=== PATIENT | female | born 1940 | race Caucasian/White ===

== ENCOUNTER 2018-08-05 20:05 | Inpatient (IN) | payer OTHER ==
[~2018-08-05] VITALS: Ht 157.5 cm; Wt 53.1 kg
[2018-08-05 20:16] VITALS: BP 120/57
[2018-08-05] MEDS ORDERED: ZOLOFT25 MG PO (20:25)
[2018-08-05] MEDS ORDERED: VITAMIN B-121000 MC3 PO (20:26)
[2018-08-05] MEDS ORDERED: SERTRALINE HCL50 MG PO (20:27)
[2018-08-05] MEDS ORDERED: SEROQUEL 25 MG25 MG PO (20:27)
[2018-08-05] MEDS ORDERED: FLOMAX0.4 MG PO (20:28)
[2018-08-05] MEDS ORDERED: DAILY MULTIPLE1 EACH PO (20:29)
[2018-08-05] MEDS ORDERED: PROPRANOLOL 1010 MG PO (20:29)
[2018-08-05] MEDS ORDERED: RESTASIS1 EACH OPHTHALMIC (20:30)
[2018-08-05] MEDS ORDERED: [UNRECOGNIZED DRUG - OTHER] OPHTHALMIC (20:31)
[2018-08-05] MEDS ORDERED: VENTOLIN HFA 1818 GM INH (20:31)
[2018-08-05] MEDS ORDERED: TYLENOL EXTRA500 MG PO (20:32)
[2018-08-05] MEDS ORDERED: MELATONIN5 M1 PO (20:33)
[2018-08-05] MEDS ORDERED: ARICEPT10 MG PO (20:33)
[2018-08-05] MEDS ORDERED: MACROBID 100 M100 M2 PO (20:34)
[2018-08-05 21:03] LABS: ABSOLUTE NEUTROPHILS 2.9 thou/uL (1.4-8.2); EOSINOPHILS 4.2 % (0.0-3.0); HEMATOCRIT 35.4 % (37.0-47.0); HEMOGLOBIN 11.8 gm/dL (12.0-15.0); LYMPHOCYTES 32.6 % (24.0-44.0); MCHC 33.3 g/dL (28.0-37.0); MONOCYTES 10.7 % (1.0-8.0); PLATELET COUNT 195 thou/uL (150-400); POLYS 51.5 % (36.0-66.0); RBC 4.36 mil/uL (4.20-5.00); WBC 5.6 thou/uL (4.0-11.0)
[2018-08-05 21:03] LABS: URINE BILIRUBIN NEGATIVE (Negative); URINE BLOOD NEGATIVE (Negative); URINE CLARITY CLEAR; URINE COLOR YELLOW; URINE GLUCOSE-RANDOM* NEGATIVE (Negative); URINE KETONES TRACE (Negative); URINE LEUKOCYTES-REFLEX 1+ (Negative); URINE NITRITE-REFLEX POSITIVE (Negative); URINE PROTEIN (DIPSTICK) NEGATIVE (Negative); URINE SPECIFIC GRAVITY >= 1.030 (1.005-1.035); URINE UROBILINOGEN 0.2 E.U./dl (0.2-1.0)
[2018-08-05 21:11] LABS: AMP/METHAMP Negative (Negative); BARBITURATES Negative (Negative); BENZODIAZEPINES Negative (Negative); CALCIUM OXALATE 0-3 Few /LPF (None Seen); CASTS None Seen /LPF (None Seen); COCAINE Negative (Negative); METHADONE Negative (Negative); OPIATES Negative (Negative); PCP Negative (Negative); SQUAMOUS 0-3 Few /LPF (0-3)
[2018-08-05 21:12] LABS: BACTERIA-REFLEX >30 Many /HPF (None Seen); URINE RBC None Seen /HPF (0-2)
[2018-08-05 21:15] LABS: ANION GAP 8 mmol/L (7-16); BUN 23 mg/dL (7-18); CALCIUM 9.4 mg/dL (8.5-10.1); CHLORIDE 106 mmol/L (98-107); CO2 30 mmol/L (21-32); CREATININE 0.9 mg/dL (0.6-1.0); GLUCOSE 105 mg/dL (74-106); POTASSIUM 3.8 mmol/L (3.5-5.1); SODIUM 144 mmol/L (136-145)
[2018-08-05 21:25] LABS: ALBUMIN 3.4 g/dL (3.4-5.0); SGOT 20 U/L (15-37); SGPT 16 U/L (30-65); TOTAL BILIRUBIN 0.2 mg/dL (<0.1-1.0); TOTAL PROTEIN 6.9 g/dL (6.4-8.2); TROPONIN-I <0.06 ng/mL (<0.06)
[2018-08-05 23:34] VITALS: BP 120/57
[2018-08-05 23:36] VITALS: BP 107/51
[2018-08-06 01:14] VITALS: BP 107/51
--- NOTE | 2018-08-06 01:16 | NUR ---
ADMISSION NOTE: THE PT ARRIVED ON THE UNIT FROM THE ER VIA CART. THE FAMILY WAS WITH THE PT. HER GERMAINE TOVAR [phone], HER DAUGHTER, WOULD LIKE TO SPEAK WITH THE PHYSICIAN IN THE AM. THE PT CAME FROM [facility], SHE HAS BEEN HAVING INCREASED A/V HALLUNICATIONS, SHE HAS BEEN PARANOID. SHE HAS BEEN ON THE DECLINE SINCE 2018. SHE CURRENTLY HAS A UTI, SHE RECEIVED A DOSE OF IV ROCEPHIN IN THE ER, AND THE SALINE LOCK WAS LEFT IN PLACE TO HER RIGHT ARM. THE PT SAW THE NEURLOGIST YESTERDAY, AND SHE WAS SUPPOSE TO BE STARTED ON MEDICATION, ARICEPT AND MELATONIN, WHICH SHE WAS NOT STARTED ON AT THE LONGTERM. DENIES ANXIETY, DEPRESSION, SI AND HI CURRENTLY. SHE IS AN ASSIST X 2 TO THE BS, SHE LEANS TO THE RIGHT WHEN GETTING HER UP. THE DAUGHTER SAID THAT SHE WAS USING HOME HEALTH, THEY WERE USING A WALKER AND THEY WERE GOING TO USE A WHEELCHAIR WELL. IT WAS REPORTED THAT SHE FELL YESTERDAY AND TODAY, PRIOR TO COMING HERE. SHE RECEIVED HER FLU SHOT fall. THE LONGTERM SHE CAME FROM WAS [facility]. 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 STARTED ON 12 MINUTE CHECKS FOR HER SAFETY.
--- NOTE | 2018-08-06 06:38 | NUR ---
THE PT SLEPT 5 HOURS LAST NIGHT.
--- NOTE | 2018-08-06 11:14 | NUR ---
PATIENT EXHIBITED PARANOIA THIS A.M., EVIDENCED BY REFUSING TO TAKE MEDICATION; STATING THAT EVERYONE HERE IS TRING TO HURT HER. PATIENT HAS BEEN AMBVULATING ABOUT IN THE DINING ROOM WITHOUT A PURPOSE.
--- NOTE | 2018-08-06 11:14 | NUR ---
Pt and ASSESSOR spoke this morning for initial introduction during meal time. Pt presented with flat affect. She spoke softly and carefully. At one point, pt asked lens polisher - your name is Angi, right? ASSESSOR reoriented pt to correct name. Pt stated - oh yes, Angi is the name you will get in your next life. She explained that we all pass on eventually and then begin our new lives. Pt carefully observed staff walking in hallways/day room. When DR entered unit, pt became suspicious and told ASSESSOR that she should beware of him as he is a viscious man.
--- NOTE | 2018-08-06 11:34 | NUR ---
Nutrition: pt admit with delusions, hallucinations, UTI to [facility] unit. Notified of low waqar score. Pt with hx of dementia but did report UBW of 115#. Current is 117#. Did not eat much breakfast this am and decreased po recently documented on ED note. Current diet is soft, noted hx of difficulty swallowing however pt denies. On MVI, B12 supplementation. Would not provide specific food preferences to RD, states she likes to eat a healthy diet. If po does not improve, rec offer ensure. Otherwise consider low risk at present.
--- NOTE | 2018-08-06 16:17 | NUR ---
ASSUMED PATIENT CARE AT 0715. UP AT BREAKFAST, ATE 100% OF MEAL. BLOOD PRESSURE LOW ON DINAMAP, MANUAL READINGS: 110/66, 72 HR, STANDING 100/70, 84 HR. TOOK AM MEDICATIONS. ATE 100% OF LUNCH WELL. CALM BEHAVIOR, SATISFIED MOOD. CONTINUE TO MONITOR.
[2018-08-06 16:29] VITALS: BP 122/57
--- NOTE | 2018-08-06 16:29 | NUR ---
PSYCHOSOCIAL ASSESSMENT Diagnosis: Delusions Admit Date: 08/05/18 Psychiatrist: ERASMO Symptoms associated with current admission: Hallucinations Paranoid ideation Violence/aggression Sleep disturbance Presenting problems: Pt fell twice within a 24 hours because she seen someone. Pt felt like her life in danger in she jump up to get away. Precipitating Factors: Non-compliance psychothx Non-compliance medication Comments: Pt has history of UTI, and current. Pt has had tremors. History of High Risk Behavors: Hx violence/aggression Suicide Risk Factors: D A-Signs of alcohol/substance abuse w/ suicide ideation B-Recent suicidal thoughts or attempts C-Recent thoughts or attempts of harming someone else D-Altered mental status due to psychiatric/chem dep etiology E-The behavior exists - add comment PSYCHIATRIC HISTORY Age of onset: 77 Prior hospitalizations: Hospital names and dates, if available: Most Recent Outpatient HX: Additional information: Legal Status: Voluntary Guardian/Conservatorship type: DPOA Contact name: Kelly Macedo Contact phone: [phone] Other: Name: Phone: Other legal issues: (Arrests/convictions Current Status) None P.O. Name and Phone #: FAMILY HISTORY Place of : [facility] Raised in: [facility] # Siblings & order: Pt has 3 sibilings, and 3rd child Describe relationships within family of origin: Pt is close to her sibilings, and she has a sister who she facetime, and her brother is active in her life. Pt is surrounded by her family, and friends. Any psychiatric or substance abuse problems within family of origin: Y Has patient been sexually or physically abused, neglected or been taken advantage of financially? N Has the abuse been reported? N Other pertinent family information: Marital history/significant relationships: Domestic violence: N Children ages & who is caring for them: Pt has 4 adult children. Is child welfare involved? N Drug history: None Alcohol Use: Frequency: Quantity: Have you ever felt you ought to Cut down on drinking? Have people Annoyed you by criticizing your drinking? Have you ever felt bad or Guilty about your drinking? Have you ever had a drink first thing in the morning to steady your nerves/get rid of a hangover(Eye channel opener) CAGE TOTAL 0 If CAGE score is 3 or more, notify provider for withdrawal orders! 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 Occupational/Work: Do you work? N Do you want to work? N How many hours do you work/week? 0 How many jobs have you had in the past 5 years? 0 Do you need assistance finding a job? N Does the patient need assistance in job training? N Source of income: SSI Does patient have a Payee? Y Payee name: Kelly Macedo Approximate monthly income: 1000 Does patient have adequate funds for next 30 days? Y Education background: Bachelor degree Highest grade completed: 12th grade Other Educational/training programs: Functional deficits: Explain functional deficits: Current living situation: Facility (B&C, SNF,ILF) Address/phone where pt. is living: [facility] Does the patient plan to continue there after DC? Yes Patient lives with: Another facility Will family/significant other be involved in treatment? Other community support services utilized: Pt will be going back to the assisted living center Support System Available (family/friend) Name: Kelly Macedo Relationship: Daughter Name: Pallavi Pizarro Phone: Relationship: Daughter Name: Marcy Mccoy Relationship: Daughter Patient strengths: Family support Insight Education Patient's assets: Verbal Positive support system Good self care Patient's weaknesses: Chronic hx mental illness Health problems Poor social skills Additional weaknesses: Patient's perception of current social director/case management needs: Pt stated a SS is someone who helps you when you need assistance. PRELIMINARY DISCHARGE PLAN Discharge plan/Community resource contacts: Pt will discharge back to [facility] Discharge needs: Pt will need to be transported to the Assisted Living Problems anticipated on discharge: Compliance w/ med regimen Comments: (factors affecting DC plan/pt. response/interventions) Pt will be discharge to assisted living facility. Pt is been assessed to see if she has an Major Neurocognitive Disorder.
--- NOTE | 2018-08-06 17:09 | EKG ---
[place] [address] [facility] [place] [address] ELECTROCARDIOGRAM REPORT Name: DANIELA AREVALON Room #: 521B-B ADM IN M.R.#: [id number] ������������������ Admission: 08/05/18 ������������������ Attend Phys: David Lynn DO Discharge: ������������������ Date of : 36 Report #: [id number] ����������������������������������������������������������������� [id number] THIS REPORT FOR: //name// [facility] ED Test Date: 2018-08-05 Test Time: 21:25:49 Pat Name: JOSE AREVALO Department: Room: [facility] Gender: F Infectious Diseases Physician: CARLITO : 1940 Requested By: Beatrice Silva Order Number: [id number] MD: Luis Lee Measurements Intervals [place] Rate: 65 P: 33 SC: 210 QRS: -18 QRSD: 113 T: 40 QT: 421 QTc: 438 Interpretive Statements Sinus rhythm Incomplete right bundle branch block Anteroseptal infarct, age indeterminate No previous ECG available for comparison Electronically Signed On 08-06-2018 17:09:47 CDT by Luis Lee [email or web address] ��������������������������������������������� <ELECTRONICALLY SIGNED> ���������������������������������������� By: Luis Lee MD, [facility] ��������������������������������������������� 08/06/189 24 24 Luis Lee MD, [facility] /EPI
--- NOTE | 2018-08-06 17:14 | NUR ---
PATIENT TOOK NEW ORDER OF HALDOL 1 MG LIQUID, DISSOLVED IN ORANG JUICE. DAUGHTER HAD VISITED WITH PATIENT EARLIER IN THE SHIFT, CLARIFIED WITH PATIENT THAT SHE (PATIENT) MEEDS TO EAT AND TAKE MEDICATIONS SO THAT SHE CAN RETURN TOHER NORMAL ROUTINE. PATIENT HAS BEEN IN A QUIET, WITHDRAWN MOOD WITH NO OUTWARD BEHAVIORS THIS SHIFT. CONTINUE TO MONITOR.
[2018-08-06 17:18] VITALS: BP 122/57
[2018-08-06 20:12] VITALS: BP 107/51
--- NOTE | 2018-08-06 22:20 | NUR ---
ASSUMED CARE OF THE PT AT 1945PM. ALERT ET ORIENTED X 2. MAKES NEEDS KNOWN. WHEN THIS PACKING SHED SUPERVISOR FIRST CAME ON DUTY, THE PT WAS SITTING IN THE DAYROOM WATCHING TV. SHE TOOK HER MEDICATIONS WITHOUT ANY DIFFICULTY. AFTER WE WALKED HER TO BED AND ASSISTED HER TO BED, THE PT REFUSED HER ROCEPHIN SHOT. NOTIFIED THE CRIBBING SETTER POULTRY CULLER, NO NEW ORDERS. REMAINS ON 12 MINUTE CHECKS.
--- NOTE | 2018-08-07 04:17 | NUR ---
THE PT HAS BEEN SLEEPING MOST OF THE NIGHT, TURNED THE PT FREQUENTLY. ALERT TO PERSON ONLY, SHE FORGETS WHERE SHE IS AT. REMAINS ON 12 MINUTE CHECKS FOR HER SAFETY.
--- NOTE | 2018-08-07 06:03 | NUR ---
THE PT SLEPT 3 HOURS LAST NIGHT.
--- NOTE | 2018-08-07 07:40 | NUR ---
CLIENT AWAKE THIS AM. NEEDS ASSISTANCE WITH USING BSC. ONCE STANDING UP, JUST SLOW TO GETTING AROUND. USES WALKER TO AMBULATE. CONCERNED ABOUT NOT WEARING A SHIRT. LUNGS CLEAR AND ON ROOM AIR. COMPLAINED OF LEFT HIP PAIN, NOT GIVING A NUMBER. WEARS BRIEFS FOR STRESS INCON. FLAT AFFECT.
[2018-08-07 07:45] VITALS: BP 101/52
[2018-08-07 11:23] VITALS: BP 101/52
--- NOTE | 2018-08-07 13:59 | NUR ---
NO COMPLAINTS TODAY. GAVE SHIRT FROM LOST AND FOUND AND SHE FELT COMFORTABLE.
[2018-08-07 15:19] VITALS: BP 101/52
--- NOTE | 2018-08-07 18:02 | NUR ---
PT RECIEVED CLOTHES TODAY FROM FAMILY. SON CAME TO VISIT AT 1600. PT HAS BEEN AWAKE TODAY, NOT VERY VERBAL UNLESS TALKIN TOO. NO COMPLAINTS. TAKING MEDS WITHOUT ISSUES, USES WALKER TO AMBULATE.
[2018-08-07 19:33] VITALS: BP 119/62
--- NOTE | 2018-08-07 21:44 | H ---
[facility] [place] [address] HISTORY AND PHYSICAL Name: JOSE AREVALO Room #: 521B-B ADM IN M.R.#: [id number] Admission: 08/05/18 ������������������ Attend Phys: David Lynn DO Discharge: ������������������ Date of : 36 Report #: [id number] THIS REPORT FOR: //name// CC: David Lynn LITA WOODS DATE OF SERVICE: 08/06/2018 INPATIENT PSYCHIATRIC EVALUATION DATE OF EVALUATION: 08/06/2018. ATTENDING PHYSICIAN: David Lynn DO ASSOCIATE PROFESSOR OF BIOSTATISTICS: Dr. Davis. REASON FOR ADMISSION: The patient came through the Emergency Room. I have suboptimal information on the patient and she is cognitively impaired, so she is a full code at this time. HISTORY OF PRESENT ILLNESS: She was sent from a senior living, specifically independent living, I am actually unclear which senior living as I do not even have that on the paperwork. Apparently, there were increased auditory and visual hallucinations since June. In the ED they got, she has had increasing insomnia, decreased by mouth intake. The patient is struggling with recurrent urinary tract infections over the past several months, recently treated with Macrobid, otherwise not recently been started on any new medications. The patient denied physical complaints, reports she had fallen a few times and is unsure if she hit her head. Additional information obtained in the ER, it is called [facility]. They called the family to report the patient is having increased hallucinations, paranoia, auditory and visual declining since admission to [facility]. She saw a neurologist yesterday and was supposed to start Aricept at bedtime, melatonin at bedtime; however, that was not started. PAST MEDICAL HISTORY AND SURGICAL HISTORY: Includes left total hip arthroplasty in 08/2017, right total knee replacement in 2016 and left knee replacement in 1998. PSYCHIATRIC HISTORY: Includes anxiety, depression, dementia and memory issues. 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 She has essential tremor and has some dysphagia. CURRENT MEDICATIONS: Again, this was suboptimal information. I have a senior living med list that she is getting 1000 mcg of B12 daily, Seroquel 25 mg once daily, sertraline 100 mg by mouth once daily, tamsulosin 0.4 mg once daily[address] [address] HISTORY AND PHYSICAL Name: JOSE AREVALO Room #: 521B-B ADM IN M.R.#: [id number] Admission: 08/05/18 ������������������ Attend Phys: David Lynn DO Discharge: ������������������ Date of : 36 Report #: [id number] ALLERGIES: Showing allergies to TRAMADOL; however, her chart here shows ACETAMINOPHEN AND HYDROCODONE also as allergies. Multivitamin daily, propranolol 40 mg once by mouth twice daily, Restasis 1 drop into both eyes every 12 hours, Refresh Eyes, Ventolin HFA 2 puffs by mouth every 4 hours as needed for wheezing. It looks like donepezil 10 mg was started on 08/04/2018, do not believe currently ordered melatonin 5 mg by mouth once a day at bedtime, Macrobid was started at 100 mg b.i.d. x 7 days on 07/30/2018, Seroquel on 07/28/2018 was 25 mg tabs p.o. b.i.d. for dementia. SOCIAL HISTORY: Denies alcohol, tobacco or recreational drug use. Her physical exam was grossly normal. LABORATORY DATA AND DIAGNOSTIC STUDIES: EKG, incomplete right bundle branch block with anterior septal infarct, rate 65. The QTC is not listed. Abnormalities on laboratory; urine showed trace ketones, positive nitrites, 1+ leukocyte esterase, WBC is 16-25, calcium oxalate, urine bacteria greater than 30. Her BUN was 23, ALT was 16. Hemoglobin 11.8, hematocrit 35.4, eosinophils 4.2%, monocytes 10.7% which was high. UDS was negative. Urine culture is pending. Chest x-ray was done, which was negative. CT scan of the head was done, which showed diffuse cerebral atrophy and volume loss. PHYSICAL EXAMINATION: GENERAL: She is ambulatory today, but cautious gait, appearing disheveled. MENTAL STATUS EXAM: This is a well-developed, ill-appearing female, appearing older than stated age. Attention limited. Concentration limited. Speech, a bit monotone, normal rate. Thought process is linear and limited. Thought content, paranoid ideation, believing I was a distressful person. Some psychomotor agitation. No psychomotor retardation. Denied auditory or visual type hallucinations, though I think she is having external stimuli bother her. Denied suicidal intent or plan. Denied homicidal intent or plan. Some elements of hopelessness and helplessness. Memory known to be impaired, not cooperative with testing. Insight limited. Judgment limited. Fund of knowledge is below average. FORMULATION: A 77-year-old female sent from senior living for possible superimposed delirium on major neurocognitive disorder. DIAGNOSES: Major neurocognitive disorder, unspecified, with behavioral disturbance; urinary tract infection, probable culture pending; several other health concerns including urinary incontinence or rather retention, essential tremor. PLAN: Evaluate, stabilize, obtain collateral. On the senior living facesheet, [facility] [address] [place] [address] HISTORY AND PHYSICAL Name: JOSE AREVALO Room #: 521B-B ADM IN M.R.#: [id number] Admission: 08/05/18 ������������������ Attend Phys: David Lynn DO Discharge: ������������������ Date of : 36 Report #: [id number] there is a Kelly Tomlin, listed as a responsible libertarian at cell [phone], I will need to be in contact with. Regarding her medications, it looks like they needed to be further revised. I did put her on 2 more days of ceftriaxone 1 gram, I am going to make her nebulizer treatments p.r.n., continue propranolol for now and we will start her on Haldol regimen 1 mg oral twice a day for delirium. STRENGTHS: Appears to have supportive family. WEAKNESSES: Advancing age, dementia, recurrent UTIs. Estimated length of stay 7-14 days. ��������������������������������������������� <ELECTRONICALLY SIGNED> ���������������������������������������� By: David Lynn DO ��������������������������������������������� 08/07/18 [id number] 1446 David Lynn DO /nt
--- NOTE | 2018-08-07 22:58 | NUR ---
ASSUMED CARE @ 19:30. GIVEN 2100 MEDS WITHOUT DIFFICULTY. SWALLOWS PILLS ONE AT A TIME WITH WATER, HALDOL 1.5MG IN APPLEJUICE.
--- NOTE | 2018-08-08 05:00 | NUR ---
IN BED ALL NOC, RESPIRATIONS EVEN AND UNLABORED, EYES CLOSED.
[2018-08-08 07:10] VITALS: BP 126/67
[2018-08-08 13:27] VITALS: BP 126/67
--- NOTE | 2018-08-08 17:35 | NUR ---
PATIENT UP THROUGHOUT THE DAY. ATE AT LEAST 50% OF ALL THREE MEALS. COMPLIANT WITH MEDICATIONS. NO BEHAVIORS DISPLAYED, CALM AFFECT, COOPERATIVE MOOD. HAD SHOWER THIS A.M. COMPLIANT WITH MEDICATIONS.
[2018-08-08 19:34] VITALS: BP 133/65
--- NOTE | 2018-08-08 20:03 | NUR ---
ASSUMED CARE @ 19:15, IN DAY ROOM, SITTING WITH PEERS.
--- NOTE | 2018-08-09 03:12 | NUR ---
IN BED EYES CLOSED, RESPIRATIONS EVEN AND UNLABORED.
[2018-08-09 07:10] VITALS: BP 129/61
--- NOTE | 2018-08-09 08:00 | NUR ---
PT UP WITH WALKER THIS AM. SLOW TO GETTING AROUND. DENIES ANY PAIN AT THIS TIME.
[2018-08-09 11:59] VITALS: BP 129/61
--- NOTE | 2018-08-09 13:00 | NUR ---
DIDN'T WANT TO GO TO SOCIAL WORK GROUP. SAT IN DINNING ROOM.
--- NOTE | 2018-08-09 15:05 | NUR ---
PT PARTICIPATING IN GROUP AT THIS TIME.
[2018-08-09 20:15] VITALS: BP 105/54
--- NOTE | 2018-08-10 00:43 | NUR ---
ASSUMED CARE @ 19:30. A&OX3. COULD NOT NAME THE DAY OF THE WEEK, BUT KNEW THAT IT IS JULY. ORIENTED TO PLACE, SELF AND PRESIDENT. SOME CONFUSION AND FRUSTRATION WITH OWN CONFUSION. HRRR, S1S2 NOTED. LUNGS DIMINISHED, ABD NORMOACTIVE SOUNDS. DENIES BM TODAY.
[2018-08-10 02:31] VITALS: BP 105/54
[2018-08-10 11:32] VITALS: BP 128/62
--- NOTE | 2018-08-10 12:53 | NUR ---
PATIENT UP SINCE BREAKFAST; ATE 75-90% OF BOTH MEALS. COMPLIANT WITH MEDICATIONS. NOTE: FELLOW PATIENT, Shannon, HAD INTEREFERED WITH THIS PATIENT'S MED PASS, TELLING HER THAT SHE DID NOT NEED TO TAKE THE MEDICATION IF SHE DID NOT WANT TO. NURSE DISCOURAGED PEER TO NOT INTERFERE, EDUCATED PATIENT ON WHAT SHE IS TAKING, AND THAT SHE NEEDED TO TAKE SAME TO GET WELL. PATIENT COMPLIANT WITH MEDICATIONS. CONTINUE TO MONITOR.
[2018-08-10 19:29] VITALS: BP 126/60
--- NOTE | 2018-08-10 20:12 | NUR ---
ASSUMED CARE OF THE PT AT 194 PM. ALERT ET ORIENTED X 2. MAKES NEEDS KNOWN. SITTING IN THE DAYROOM WHEN THIS LEAD RADIATION THERAPIST CAME ON DUTY. USES A WALKER WHEN SHE GOES AROUND WITH THE ASSISTANCE OF 1. WALKS WITH A SLOW STEADY GAIT. DENIES SI/HI/ANXIETY/DEPRESSION,A/V HALLUNICATIONS. DENIES NIGHTMARES AND RACING THOUGHTS. REMAINS ON 12 MINUTE CHECKS.
--- NOTE | 2018-08-11 03:19 | NUR ---
THE PT HAS BEEN AWAKE ALOT OF THE NOC SHIFT, SITTING AT THE END OF HER BED, ASSISTED HER BACK UP IN THE BED. REMAINS ON 12 MINUTE CHECKS.
--- NOTE | 2018-08-11 06:10 | NUR ---
THE PT SLEPT 6.4 HOURS LAST NIGHT.
[2018-08-11 07:25] VITALS: BP 120/62
[2018-08-11 12:06] VITALS: BP 120/62
[2018-08-11 20:05] VITALS: BP 114/57
--- NOTE | 2018-08-12 03:38 | NUR ---
Pt compliant with medications but needed encouragement to remain on task. Pt abmulating with walker. Remained in living area interacting with peers until bedtime. Slept throughout the night, 6 hours current and remains sleeping. Affect remains blunted, mood calm.
--- NOTE | 2018-08-12 07:40 | NUR ---
Care assumed, patient ambulating in galan with assist of walker, pleasant, calm and cooperative. No distress noted.
--- NOTE | 2018-08-12 11:48 | NUR ---
Pt met with pt on yesterday, august 11, 2018 concerning therapy. Pt stated that she been seen people in the outside, and under bed. Pt stated that she feels safe. Pt stated that she understand that why her daughter brought her here to get help. Pt stated that she has been down with her health for the last several years, and she knows that she needs assistance with her care. Pt stated that she is ready to go back to her facility. Pt stated that her daughter is very supportive. SW stated that she will follow-up with upon discharge.
--- NOTE | 2018-08-12 11:52 | NUR ---
Patient Name: JOSE AREVALO Admission Date: 08/05/18 DISCHARGE PLAN: Pt will be discharge for [facility]. Care Assessment: Pt was assessed by Dr. Lynn, and pt was diagnose with major Neurocognitive Disorder. Level II Assessment: None Transportation: Pt will be transported by the nursing facility. Special Instructions/Notes: DISCHARGE TO FACILITY: Assisted Living Facility Facility: [facility] Fax: Address: [address] [place] [id number] Contact Name: Marie PCP: [facility] facility biomedical specialist Psychiatrist: [facility] facility psychiatrist
[2018-08-12] MEDS ORDERED: FLOMAX0.4 MG PO (12:57)
[2018-08-12] MEDS ORDERED: TYLENOL EXTRA500 MG PO (12:58)
[2018-08-12] MEDS ORDERED: HALOPERIDOL2 MG/1 ML PO (12:59)
--- NOTE | 2018-08-12 14:56 | NUR ---
1403: DC to [facility] via [facility], dc per w/c, scripts, personal walker/belongings and f/u instructions with [place] Personnel upon discharge.
--- NOTE | 2018-08-14 14:44 | D ---
[facility] [place] [address] DISCHARGE SUMMARY Name: DANIELA AREVALON Room #: 521B-B DIS IN M.R.#: [id number] Admission: 08/05/18 ������������������ Attend Phys: David Lynn DO Discharge: 08/12/18 ������������������ Date of : 36 Report #: [id number] THIS REPORT FOR: //name// CC: David Lynn LITA WOODS DATE OF SERVICE: 08/12/2018 CORRESPONDENCE COORDINATOR: At this time of discharge: Norm Ramirez M.D. DISCHARGE DIAGNOSIS: Major neurocognitive disorder likely due to Alzheimer's disease with behavioral disturbance, improved. MEDICAL COMORBIDITIES: 1. Urinary tract infection. 2. Hypertension. 3. UTI, grew Klebsiella pneumoniae. DISCHARGE MEDICATIONS: Tamsulosin 0.4 mg p.o. daily for urinary retention; Tylenol 500 mg p.o. q. 6 p.r.n. pain level 1-5, for pain or fever; Haldol 2 mg p.o. b.i.d. for mood stabilization and psychosis; cyanocobalamin 1000 mcg p.o. daily; multivitamin 1 tab p.o. daily; propranolol 20 mg p.o. b.i.d. that is for anxiety and akathisia; multivitamin for supplementation; cyclosporine ophthalmic drops one drop twice a day, I believe for eye allergies; albuterol sulfate 18 grams aerosol 2 puffs inhaled q. 6 p.r.n. for shortness of air or wheezing. Of note, at this admission, Seroquel was discontinued as well as sertraline and donepezil due to bradycardia. LABORATORY DATA: At this admission on August 05, CBC: H and H on 11.8 and 35.4, white count 5.6 and platelet count 195,000. Sodium 144, potassium 3.9, chloride 106, bicarbonate 30, anion gap 8, BUN 23, creatinine 0.9, estimated GFR 60, and glucose 105. Calcium 9.4, AST 20, ALT 16, and alkaline phosphatase 86. Troponin less than 0.06. Total protein 6.9. Albumin 3.4. TSH 1.890. UDS was negative. Serum alcohol was negative. Urinalysis was positive as indicated. REASON FOR ADMISSION: The patient was brought from [facility]. The patient was having increased hallucinations. The patient moved into [facility] on June 30 with increased anxiety; paranoia; hallucinations, auditory and visual, declining since her admission. The patient saw a neurologist yesterday, was supposed to start Aricept at bedtime and melatonin at bedtime; however, that was not started. HOSPITAL COURSE: The patient was admitted to Geriatric Psychiatry Unit. I elected to go ahead and simplify her regimen. I started her on haloperidol for the suspected component of delirium. She was very guarded the first few days and this cleared up nicely; however, I felt the benefits outweighed the risks [address] [address] DISCHARGE SUMMARY Name: MICKEYJOSE Room #: 521B-B DIS IN M.R.#: [id number] Admission: 08/05/18 ������������������ Attend Phys: David Lynn, DO Discharge: 08/12/18 ������������������ Date of : 36 Report #: [id number] for her continuing an antipsychotic regimen until she is at least a couple of weeks back and doing well at the nursing facility. PHYSICAL EXAMINATION: VITAL SIGNS: On the day of discharge as follows: Temperature 36.2, pulse 72, respirations 19, BP 114/57, and O2 sat 100%. MUSCULOSKELETAL: Ambulates with a walker. Normal station. MENTAL STATUS EXAMINATION: This is a well-developed, fairly nourished, disheveled female appearing her stated age, attention limited, concentration limited. Speech normal rate. Thought process linear. Limited in thought content. To return to nursing facility, no psychomotor agitation, some psychomotor retardation. Denied auditory, visual or tactile hallucination on day of discharge. Denied hopelessness or helplessness. Denied homicidal intent or plan. Insight limited. Judgment limited. Fund of knowledge below average. Prognosis for this patient is guarded given her age and given the fact she has neurocognitive disorder and is prone to delirium. I should add that I met with one of her daughters at this admission, I thought they had a DPOA, they do not. There was a will. The patient, at the time of the admission, did not have the capacity to appoint a DPOA; however, she may have capacity for that portion. However, for general health care and living decisions, I believe the patient lacks capacity. ��������������������������������������������� <ELECTRONICALLY SIGNED> ���������������������������������������� By: David Lynn DO ��������������������������������������������� 08/14/18 [id number] David Lynn DO /nt
== END 2018-08-12 14:03 | DRG 57 ==
LOC: ER 20:05 → EROBS 23:26 → SBH 23:26
PROVIDERS: Student in an Organized Health Care Education/Training Program; ADMIT Psychiatry & Neurology Psychiatry
DX: G30.9 Alzheimer's disease, unspecified (principal); F01.51 Vascular dementia, unspecified severity, with behavioral disturbance; N39.0 Urinary tract infection, site not specified; F41.9 Anxiety disorder, unspecified; F32.9 Major depressive disorder, single episode, unspecified; Z96.642 Presence of left artificial hip joint; Z96.653 Presence of artificial knee joint, bilateral; B96.1 Klebsiella pneumoniae [K. pneumoniae] as the cause of diseases classified elsewhere; G25.0 Essential tremor; I10 Essential (primary) hypertension; F42.8 Other obsessive-compulsive disorder; R33.9 Retention of urine, unspecified; E53.8 Deficiency of other specified B group vitamins; Z88.6 Allergy status to analgesic agent; Z88.8 Allergy status to other drugs, medicaments and biological substances; Z79.899 Other long term (current) drug therapy
CPT/HCPCS: 10880

== ENCOUNTER 2018-08-16 20:10 | Inpatient (IN) | payer OTHER ==
[~2018-08-16] VITALS: Ht 157.5 cm; Wt 53.5 kg
[~2018-08-16 20:10] MED LIST: ARICEPT10 MG PO; DAILY MULTIPLE1 EACH PO; FLOMAX0.4 MG PO; HALOPERIDOL2 MG/1 ML PO; MACROBID 100 M100 M2 PO; MELATONIN5 M1 PO; PROPRANOLOL 1010 MG PO; RESTASIS1 EACH OPHTHALMIC; SEROQUEL 25 MG25 MG PO; SERTRALINE HCL50 MG PO; TYLENOL EXTRA500 MG PO; VENTOLIN HFA 1818 GM INH; VITAMIN B-121000 MC3 PO; ZOLOFT25 MG PO; [UNRECOGNIZED DRUG - OTHER] OPHTHALMIC
[2018-08-16 21:30] LABS: URINE BILIRUBIN NEGATIVE (Negative); URINE BLOOD TRACE (Negative); URINE CLARITY CLEAR; URINE COLOR YELLOW; URINE GLUCOSE-RANDOM* NEGATIVE (Negative); URINE KETONES NEGATIVE (Negative); URINE LEUKOCYTES-REFLEX TRACE (Negative); URINE NITRITE-REFLEX NEGATIVE (Negative); URINE PROTEIN (DIPSTICK) NEGATIVE (Negative); URINE UROBILINOGEN 0.2 E.U./dl (0.2-1.0)
[2018-08-16 23:48] VITALS: BP 138/60
[2018-08-17 00:50] VITALS: BP 136/56
[2018-08-17 02:18] VITALS: BP 118/42
--- NOTE | 2018-08-17 04:14 | NUR ---
PT ARRIVED ON UNIT FROM ER AT APPROX 0100. ADMITTED FROM [facility] WITH DEMENTIA AND BEHAVIORAL DISTURBANCES. ORIENTED TO SELF. DENIES PAIN. DC'D FROM 5S 08/16--PLAN IS FOR READMISSION WHEN BED AVAILABLE. RESTING COMFORTABLY. NO NEEDS VOICED. CALL LIGHT WITHIN REACH. WILL CONTINUE TO PROVIDE FREQUENT OBSERVATION.
[2018-08-17 08:29] VITALS: BP 109/60
[2018-08-17 12:46] LABS: HEMATOCRIT 38.8 % (37.0-47.0); HEMOGLOBIN 12.9 gm/dL (12.0-15.0); MCH 26.8 pg (26.0-34.0); MCHC 33.2 g/dL (28.0-37.0); MCV 80.6 fL (80.0-100.0); RBC 4.82 mil/uL (4.20-5.00); RDW 14.5 % (10.5-14.5); WBC 6.7 thou/uL (4.0-11.0)
[2018-08-17 12:55] LABS: CALCIUM 9.3 mg/dL (8.5-10.1); CREATININE 0.8 mg/dL (0.6-1.0); POTASSIUM 3.7 mmol/L (3.5-5.1)
--- NOTE | 2018-08-17 16:10 | NUR ---
ASSUMED CARE OF PT AT 0700. ASSESSMENT COMPLETED. PT TEARFUL, SUSPICIOUS, AND DEPRESSED. ALERT TO SELF AND PLACE ONLY. DENIES PAIN. NO IV ACCESS, PROVIDER AWARE, NO NEED AT THIS TIME. LABS WNL. ROOM AIR. SKIN INTACT. VOIDING PER BEDPAN DUE TO WEAKNESS. DAUGHTER JONES AT BEDSIDE THIS AFTERNOON. WAITING FOR [facility]YCH. WILL CONTINUE TO MONITOR UNTIL EOS.
[2018-08-17 20:40] VITALS: BP 120/53
[2018-08-18 04:34] VITALS: BP 103/50
--- NOTE | 2018-08-18 05:45 | NUR ---
ASSUMED CARE AT 1900, ASSESSMENT COMPLETED. PT TALKING ABOUT THERE BEING A RAZOR BLADE IN HER BED AND STATING HER FEET WERE BLEEDING, PT HALLUCINATING NEITHER OF THESE WERE TRUE, DID NOT BELIEVE STAFF WHEN REORIENTED. TALKED ABOUT WANTING TO GO HOME, DID NOT KNOW/UNDERSTAND WHY SHE WAS IN THE HOSPITAL. STRUGGLED WITH TAKING PILLS, ALTERNATELY SAYING SHE COULDN'T TAKE WITH LIQUIDS OR WITH APPLESAUCE AND SPITTING PILLS OUT; DID BETTER ONCE SHE HELD THE CUP AND PILLS WERE GIVEN WITH A SPOON THEN A BITE OF APPLESAUCE. PT DOES VERY LITTLE TO MOVE HERSELF, ARMS AND LEGS REMAIN STIFF IN BED, STAFF HAVE TO MOVE HER ARMS OVER TO START HER TURNING TO SIDE/GRABBING THE SIDERAIL TO TURN AND USE THE BEDPAN. PT C/O PAIN IN KNEES, WORSE WITH ANY SORT OF MOVEMENT. PLACED ON BEDPAN TWICE OVERNIGHT, PT DID NOT URINATE; BLADDER SCAN SHOWED ABOUT 25O ML IN BLADDER BUT PT NEVER WOULD GO. NO OTHER CONCERNS, WILL CONTINUE TO MONITOR.
[2018-08-18 08:45] VITALS: BP 134/63
--- NOTE | 2018-08-18 16:00 | NUR ---
PT ADMITTED RELATED TO DEMENTIA--HALLUCINATIONS--BEHAVIOR DISTURBANCE. CM REVIEWED CHART AND SPOKE WITH CARE TEAM. CM MET WITH PT AT BEDSIDE THIS DAY. PT CONFIRMED THAT SHE HAD BEEN AT [facility] CABIN SUPERVISOR. PT COULDN'T CONFIRM IF SHE HAD USED ANY ASSISTIVE DEVICES CABIN SUPERVISOR. CM CONFIRMED THAT DTR IS CONTACT. CM CALLED HER DTR AND LEFT A VM. AWAITING RESPONSE. CARE TEAM INDICATED THAT THE HOPE IS THAT PT WILL BE ABLE TO DISCHARGE BACK TO HER AL FACILITY ONCE MEDICALLY STABLE. CM TO FOLLOW INDICATED WITH DC PLANNING.
[2018-08-18 17:48] VITALS: BP 112/54
[2018-08-18 19:28] VITALS: BP 110/56
--- NOTE | 2018-08-18 19:53 | NUR ---
ASSUMED CARE AT 0700, SHIFT ASSESSMENT DONE, MEDS GIVEN, SOME WHOLE, SOME CRUSHED WITH APPLESAUCE. CONFUSED, A&O*3, INCONTINET. DENIES ANY PAIN. APPETITE POOR, UP WITH ASSIST TIMES 2, GAIT VERY UNSTEADY. STILL HALLUCINATING, WILL CONTINUE TO ASSESS AND ASSIST WITH ADLs NEEDED.
[2018-08-19 03:40] VITALS: BP 100/48
--- NOTE | 2018-08-19 06:37 | NUR ---
patients cares were assumed at shift change, patient was assessed and meds were passed. patient did remember this nurse from the [facility]. patient does better with family present. hourly rounding was done and patient was sleeping. the bed is in a low and locked position,
[2018-08-19 07:45] VITALS: BP 123/56
--- NOTE | 2018-08-19 10:00 | NUR ---
ASSUMED PT CARE AT 0700. ASSESSMENT COMPLETED AND IS CHARTED. VSS. PT IS AWAKE, ALERT/ORIENTED TO PERSON ONLY. PT UP IN CHAIR AT THIS TIME, HALLUCINATING AT TIMES. PT ALSO ATTEMPTING TO PULL CLOTHES OFF. ATTEMPTED TO REDIRECT PT WITH TOWELS TO FOLD. CHAIR ALARM ON FOR SAFETY.
--- NOTE | 2018-08-19 13:19 | NUR ---
PT. RESIDES AT [facility] FAXED CLINICAL UPDATE TO FACILITY AND SPOKE WITH VERO IN ADM. HE RECEIVED UPDATE. DCP TO FOLLOW.
--- NOTE | 2018-08-19 15:12 | NUR ---
CONTACTED BY DR ZIMMERMAN AND DR SIM SAYING THAT PT NEEDS A MEMORY CARE ASSISTED LIVING FACILITY AND THEY HAVE BEEN IN CONTACT WITH [facility] AND THEY ARE NOT ABLE TO ACCEPT PT BACK TO THEIR FACILITY. S/W HERBERT [place].N & SHE CONFIRMED THIS INFO AND TELLS ME HER[facility] ADM WILL HAS A LIST OF MEMORY CARE FACILITIES THAT TAKE THE HCBS WAIVER.
--- NOTE | 2018-08-19 15:25 | NUR ---
CM SPOKE WITH PT'S DTR/DPOA JONES AND SHE HAD SPOKE WITH HER SISTER WHO SPOKE WITH DR. SIM. SHE UNDERSTOOD THAT [facility] WOULD[facility]'T BE ABLE TO ACCEPT PT BACK. FABIAN INDICATED THAT ANDREW HAD INFORMED US OF THAT AND THAT WILL THE RAIL TRANSPORTATION OPERATOR WAS GOING TO PROVIDE A [place]IST OF [place] MEMORY CRE FACIL[place]IES THAT TAKE THE HCBS WAIVER FOR PT'S FAMILY TO REVIEW.
--- NOTE | 2018-08-19 15:46 | NUR ---
PT REMAINS UP IN CHAIR. CONTINUES TO BE CONFUSED BUT IS NOT SO ANXIOUS AND HAS STOPPED PULLING CLOTHES OFF. CHAIR ALARM REMAINS ON. WILL CONTINUE TO MONITOR.
--- NOTE | 2018-08-19 16:25 | NUR ---
[facility] RECORDER CALLED WITH LIST OF 6 FACILITIES THAT HAVE MEMORY CARE AND TAKE [place] MEDICAID. CM CALLED AND NOTIFIED PT'S DTR/DPOA AND SHE ASKED THAT THE LIST BE EMAILED TO HE SPOUSE AT [email or web address]. [facility], [facility], [facility], [facility], [facility], AND [facility]. CM TO FOLLOW INDICATED WITH DC PLANNING.
[2018-08-19 17:36] VITALS: BP 99/55
[2018-08-19 18:45] VITALS: BP 103/47
[2018-08-20 05:30] VITALS: BP 117/58
--- NOTE | 2018-08-20 06:33 | NUR ---
ASSUMED CARE AT 1900, ASSESSMENT COMPLETED. PT ALERT AND PLEASANT WITH GUEST IN ROOM, UP WITH MODERATE ASSIST TO BSC WITH ASSOCIATE [employer]. AFTER VISITOR LEFT, PT LESS ALERT, MORE HESITANT GETTING UP/DOWN OR MOVING IN BED, STRUGGLED WITH TAKING PILLS--KEPT ASKING WHAT IT WAS OR WHY SHE NEEDED TO TAKE IT. PT C/O PAIN IN HEELS, KEEPS LEGS BENT IN BED WITH HIGH PRESSURE TO BOTTOM OF FEET, AND DISLIKES HAVING LEGS PROPPED OR HAVING HOB LAID BACK. THIS AM, ASSISTED PT UP WITH MAX ASSIST TO BSC THEN TO CHAIR. WAITING ON PLACEMENT AT FACILITY. NO OTHER CONCERNS, WILL CONTINUE TO MONITOR.
[2018-08-20 08:40] VITALS: BP 97/46
--- NOTE | 2018-08-20 16:09 | NUR ---
RECEIVED CALL BACK FROM PT'S DTR AND [facility] FOLLOWING TO ASSIST WITH NEW PLACEMENT.
--- NOTE | 2018-08-20 16:22 | NUR ---
FAXED REFERRAL TO [facility] SPOKE WITH JOSHUA IN ADM. SHE RECEIVED REFERRAL AND WILL REVIEW. PT. NEEDS A LTC MEMORY UNIT. FAXED REFERRAL TO [facility] DCP TO F/U IN AM.
[2018-08-20 16:30] VITALS: BP 116/64
--- NOTE | 2018-08-20 16:36 | NUR ---
FAXED REFERRAL TO [facility] SPOKE WITH JOSHUA IN ADM. SHE RECEIVED REFERRAL AND WILL REVIEW. PT'S FAMILY WILL TOUR THE FACILITY THIS EVENING. PT. WILL POSS. BE ABLE TO BE AT A.L.MEMORY UNIT. DCP WILL F/U WITH [facility] IN AM. FAXED REFERRAL TO [facility] SPOKE WITH ALEXA IN ADM. SHE RECEIVED REFERRAL THIS FACILITY IS ONLY A.L. MEMORY CARE FACILITY. SHE WILL REVIEW REFERRAL AND DCP TO F/U IN AM.
[2018-08-20 17:11] VITALS: BP 116/64
--- NOTE | 2018-08-20 17:53 | NUR ---
PATIENT TRANSFERRED FROM [facility]E TO [facility]. REPORTED GIVEN BY NURSE PINK. PATIENT SETTLED TO UNIT. BED ALARM SET.
--- NOTE | 2018-08-21 05:36 | NUR ---
PATIENT ALERT AND ORIENTED TO PERSON AND PLACE ONLY. VERY ANXIOUS. SEES THINGS NOT THERE. IMPULSIVE, TRIES TO GET UP BY SELF. C/O OF SEVERAL DIFFERENT THINGS. A DIFFERENT THING EVERY TIME THIS BAND SPLITTER GOES INTO ROOM. THE ONLY CONSTANT IS THAT THE PATIENT WANTS TO GO HOME. DENIES PAIN. SLEPT VERY LITTLE THIS SHIFT.
[2018-08-21 08:10] VITALS: BP 111/56
--- NOTE | 2018-08-21 13:04 | NUR ---
ASSUMED PATIENT AND CARES AT 0715, PATIENT INITIALLY WAS SLEEP, PATIENT THEN WOKE UP MOVING BLANKETS OFF OF HER, PATIENT HAVING A CONVERSATION DIFFICULT TO TRACK, PATIENT HAVING HALLUCINATIONS, A&OX2 SELF AND PLACE, DENIES PAIN OR DISCOMFORT, NO IV ACCESS, FALL PRECAUTIONS IN PLACE, PERSONAL BELONGINGS AND CALL LIGHT IN REACH, WILL CONTINUE TO MONITOR
--- NOTE | 2018-08-21 13:27 | NUR ---
SW reviewed chart and spoke with nursing and attending physician. [facility] . Pt is progressing towards goals for discharge. SW spoke with pt's dtr, Kelly, via phone to provide update and discuss discharge plan. Pt's dtr stated that they toured [facility] last evening and are going to tour [facility] this evening. Per chart, referral had been sent to [facility]. Pt's dtr states that they are not interested in [facility]. They are wanting to move pt to the [facility]. Pt's dtr states that she spoke with Pearl at [facility], who will review the info once received. F unable to say if they can accept until they review pt's info and do onsite eval. shoe planner to fax referral to [facility]. [facility]. KEHINDE spoke with Rosenda in admissions at [facility] to notify of new referral. KEHINDE informed of pt being in [facility] last month to determine if they need additional ppwk for admission to their SNF or LTC. shoe planner to fax referral to [facility]. Awaiting input from family and facilities. KEHINDE is following to assist as needed with discharge planning.
--- NOTE | 2018-08-21 13:34 | NUR ---
DISCHARGE PLANNING. PATIENT IS MEDICALLY READY FOR DISCHARGE. POST ACUTE CARE RECOMMENDED AT DISCHARGE. FAMILY REQUESTING REFERRAL FAXED TO [facility]. REFERRAL FAXED TO [facility] ADMISSIONS. VERIFIED REFERRAL RECEIVED. CALL PLACED TO [facility] TO NOTIFY OF REFERRAL AND PATIENTS DISCHARGE NEEDS. [facility] STATES [facility] YESTERDAY EVENING AND WILL REVIEW REFERRAL. [facility] TO NOTIFY CM ONCE REVIEW COMPLETE. CALL PLACED TO [facility] ADMISSIONS. VOICE MAIL LEFT FOR JOSHUA TO NOTIFY HER TO DISREGARD REFERRAL FAXED TO [facility]. PER FAMILY, REFERRAL REQUESTED TO BE SENT TO [facility]. FOLLOWING TO ASSIST WITH PATIENTS DISCHARGE NEEDS. UNTI CM/SW AWARE.
[2018-08-21 20:15] VITALS: BP 128/64
--- NOTE | 2018-08-22 05:31 | NUR ---
PATIENT ALERT AND ORIENTED TO PERSON AND SITUATION. IMPULSIVE, HALLUCINATES, CHIEF COMPLIANCE OFFICER WAS CALLED FOR A MED TO HELP CALM PT DOWN. WAS GIVEN MID-SHIFT, WITH NO HELP. C/O PAIN EARLY IN SHIFT, TYLENOL GIVEN WITH NO RELIEF. PATIENT BEGAN TO SAY HER R HIP WAS BROKED AND SHE COULD NOT MOVE HER LEG. WHEN I TRIED TO MOVE IT SHE SCREAMED. CHIEF COMPLIANCE OFFICER WAS CALLED AND AN ORDER FOR AN X-RAY OBTAINED. X-RAY COMPLETED. SLEPT VERY LITTLE THIS SHIFT.
--- NOTE | 2018-08-22 07:57 | NUR ---
ASSUMED PATIENT AND CARES AT 0715, PATIENT IN BED SLEEPING ON LEFT SIDE, NO S/S OF DISTRESS PAIN OR DISCOMFORT, REPORTED A&OX2 SELF AND PLACE, REPORTED PATIENT DID NOT SLEEP WELL, NO IV ACCESS, PENDING RESULTS FOR HIP/PELVIS XRAY, FALL PRECAUTIONS IN PLACE, PERSONAL BELONGINGS AND CALL LIGHT IN REACH, WILL CONTINUE TO MONITOR
[2018-08-22 10:57] VITALS: BP 105/60
--- NOTE | 2018-08-22 13:54 | NUR ---
DISCHARGE NOTE: SW reviewed chart and spoke with nursing and attending physician. Pt is medically stable for discharge today. SW received call from pt's dtr, Kelly, stating they toured [facility], and would like for pt to go to [facility]. [facility] liaison onsite to do evaluation this morning and states they can accept pt. buyer planner sent d/c orders/summary to [facility]. [facility] arranged w/c van transportation for 1530. SW spoke with pt's dtr, Kelly, to provide update and notify of transportation time. Kelly is aware and agreeable to with dischargd plan. Kelly states they will clean out pt's apt at [facility] this weekend. Chart copy requested. Nursing to call report. No additional SW needs identified at this time, but is available to assist should needs arise.
--- NOTE | 2018-08-22 15:46 | NUR ---
PATIENT DISCHARGE TO [facility], NO IV ACCESS TO REMOVE, NO PERSONAL BELONGINGS TO SEND WITH PATIENT, NURSE CALLED REPORT TO [facility], CHART COPY SENT WITH PATIENT, FACILITY VAN TRANSPORTED PATIENT PER WHEELCHAIR
--- NOTE | 2018-08-22 15:53 | NUR ---
I AGREE WITH NURSING ASSESSMENT DONE BY WINSOME/KAYLYNN.
== END 2018-08-22 15:54 | disposition short-term general hospital (02) | DRG 71 ==
LOC: ER 20:10 → 4E 23:37 → EROBS 23:37 → 4E 08-17 02:06 → ENTRNSPT 08-20 16:36 → SICU 08-20 16:54
PROVIDERS: Emergency Medicine; ADMIT Internal Medicine
DX: G93.41 Metabolic encephalopathy (principal); F01.51 Vascular dementia, unspecified severity, with behavioral disturbance; F32.9 Major depressive disorder, single episode, unspecified; Z96.652 Presence of left artificial knee joint; F41.9 Anxiety disorder, unspecified; F22 Delusional disorders; I10 Essential (primary) hypertension; Z96.649 Presence of unspecified artificial hip joint; Z23 Encounter for immunization; Z88.6 Allergy status to analgesic agent; Z88.8 Allergy status to other drugs, medicaments and biological substances; Z90.710 Acquired absence of both cervix and uterus
CPT/HCPCS: 10084; 15002

== ENCOUNTER 2018-09-24 11:22 | Inpatient (IN) | payer OTHER ==
[~2018-09-24] VITALS: Ht 162.6 cm; Wt 49.9 kg
[2018-09-24 12:47] VITALS: BP 143/72
--- NOTE | 2018-09-24 13:03 | NUR ---
77 YO FEMALE DIRECTLY ADMITTED TO 428 BY CART FROM [facility]. A&O TO SELF AND SITUATION. NON VERBAL. LUNG SOUNDS ARE WET WITH SECREATIONS. PT CLEARS THROAT THEN SWALLOWS. IV IN R FA INTACT INFUSING D51/2NS. INCONT OF URINE HAS A BREIF ON. NOTIFIED VIA [employer]. WILL CONT POC.
[2018-09-24 13:23] VITALS: BP 143/72
[2018-09-24] MEDS ORDERED: MUCINEX600 MG PO (13:30)
[2018-09-24] MEDS ORDERED: CLARITIN10 MG PO (13:34)
[2018-09-24] MEDS ORDERED: LEVSIN0.125 MG PO (13:34)
[2018-09-24] MEDS ORDERED: SEROQUEL XR50 MG PO (13:35)
[2018-09-24] MEDS ORDERED: ATIVAN0.5 MG PO (13:35)
[2018-09-24] MEDS ORDERED: TRAZODONE HCL50 MG PO (13:36)
[2018-09-24] MEDS ORDERED: ZOLOFT50 MG PO (13:36)
[2018-09-24 15:23] LABS: HEMATOCRIT 37.3 % (37.0-47.0); HEMOGLOBIN 12.3 gm/dL (12.0-15.0); MCH 26.8 pg (26.0-34.0); MCHC 33.1 g/dL (28.0-37.0); MCV 81.1 fL (80.0-100.0); RBC 4.6 mil/uL (4.20-5.00); RDW 15.5 % (10.5-14.5); WBC 10.7 thou/uL (4.0-11.0)
[2018-09-24] MEDS ORDERED: LORAZEPAM 2MG2 MG/M1 IV PUSH (15:24)
[2018-09-24] MEDS ORDERED: MAALOX ADVANCE355 M1 PO (15:27)
[2018-09-24] MEDS ORDERED: [UNRECOGNIZED DRUG - OTHER] PO (15:28)
[2018-09-24] MEDS ORDERED: OLANZAPINE2.5 MG PO (15:29)
[2018-09-24] MEDS ORDERED: LEVAQUIN 500 M500 M2 IV (15:31)
[2018-09-24] MEDS ORDERED: ONDANSETRON HCL4 M2 PO (15:32)
[2018-09-24] MEDS ORDERED: METRO IV 5500 MG/100 IV (15:32)
[2018-09-24 15:33] LABS: CREATININE 0.6 mg/dL (0.6-1.0); POTASSIUM 3.6 mmol/L (3.5-5.1)
[2018-09-24] MEDS ORDERED: ATROPINE SULFATE2 ML OPHTHALMIC (15:34)
[2018-09-24] MEDS ORDERED: ENOXAPARIN40 MG/0.1 SUBQ (15:34)
[2018-09-24] MEDS ORDERED: HALDOL DEC100 MG/1 M IM (15:36)
[2018-09-24 15:39] LABS: ALBUMIN 2.9 g/dL (3.4-5.0); TOTAL BILIRUBIN 0.6 mg/dL (<0.1-1.0); TOTAL PROTEIN 6.4 g/dL (6.4-8.2)
[2018-09-24 19:35] VITALS: BP 142/69
--- NOTE | 2018-09-25 04:45 | NUR ---
ASSUMED CARE AT 1900, PT HAS BIG FAMILY AND VERY SUPPORTIVE, SPEECH VERY HARD TO UNDERSTAND, VERY RESTLESS AND CRYING WITH EACH TURNING/REPOSITIONING, GIVEN 2 MG IV MORPHINE ORDERED, INCONTINENT OF B/B, PERICARE GIVEN, SCDS TO BLE, ON OXYGN 2 L PER NC, ORAL SUCTION ON STANDBY AND PT DOES NOT LIKE IT, ABLE TO DO ORAL CARE USING SWABS, VSS, STARTED ON ANTIBIOTICS, KEPT NPO, TURNED/REPOSITIONED EVERY 2 HOURS, SCDS TO BLE, ENT WAS CONSULTED, MONITORED.
[2018-09-25 06:28] VITALS: BP 111/74
[2018-09-25 08:21] VITALS: BP 146/92
--- NOTE | 2018-09-25 16:19 | NUR ---
INITIAL ASSESSMENT: Pt evaluated for d/c planning needs. Reviewed chart and spoke with nurse, pt, sister and cousin at bedside. Pt had been living at home with her daughter, went to [facility] memory care unit, then to [facility] behavioral health unit, then to acute care at [facility]. From there, pt went to [facility] memory care unit. Spoke with construction project coordinator at [facility], and she said pt was having hallucinations, and they sent her to [facility]. According to construction project coordinator at [facility], [facility] was planning on sending patient to [facility] for a PEG tube placement. Pt's sister said the plan is for pt to return to [facility] on d/c from hospital. Will remain available to assist as needed.
[2018-09-25 17:42] VITALS: BP 142/62
--- NOTE | 2018-09-25 18:30 | NUR ---
PT ASSESSED AT START OF SHIFT. VERY CONFUSED, RESTLESS, YELLING. DR. BARRERA NOTIFIED AND FABYL RESUMED. PT CALMED AND HAS BEEN VISITING W/ FAMILY AT BEDSIDE. PT VERY CONJESTED THIS AM W/ STRON PRODUCTIVE COUGH. ORAL SUCTIONED W/ THICK WHITE MUCOUS. GOOD ORAL CARE GIVEN. PT RECEIVING RT TX AND NOW OFF O2. TALKED W/ DTR DPOA RE POSSIBLE NEED FOR PEG AND SHE IS GOING TO TALK W/ OTHER FAMILY.
[2018-09-25 22:52] VITALS: BP 130/55
--- NOTE | 2018-09-26 03:56 | NUR ---
ASSUMED CARE AT START OF SHIFT DAUGHTER AT BEDSIDE PT CONFUSED TO TIME SITUATION ORIENTED TO SELF ONLY , DENIES PAIN , YELLING OUT AT TIME , BUT NOTMAKING ANY SENSE ON WHAT AND WHY SHWE IS YELLING OUT. HALDOL GIVEN ORDERED AND HAVE CALM PT DOWN , FEMAL CATHETER PLACED TO KEEP DRY DUE TO HER BE INCONTINENT. RESTED WELL AFTER MEDICATION GIVEN, BED ALARM ON FOR SAFETY, WILL REPORT CHANGES OR ABNORMAL FINDINDGS.
[2018-09-26 04:48] LABS: HEMATOCRIT 33.4 % (37.0-47.0); HEMOGLOBIN 11.2 gm/dL (12.0-15.0); MCH 26.9 pg (26.0-34.0); MCHC 33.5 g/dL (28.0-37.0); MCV 80.4 fL (80.0-100.0); RBC 4.15 mil/uL (4.20-5.00); RDW 14.9 % (10.5-14.5)
[2018-09-26 05:08] LABS: CALCIUM 8.7 mg/dL (8.5-10.1); CREATININE 0.5 mg/dL (0.6-1.0)
[2018-09-26 05:36] VITALS: BP 141/85
[2018-09-26 08:05] VITALS: BP 151/57
--- NOTE | 2018-09-26 08:10 | NUR ---
ASSESMENT COMPLETED. VSS. CONFUSED. VWERY RESTLESS. SCHEDULED MEDS GIVEN ORDERED. INCONTINEHNT. REPOSITIONED Q2. PT RESTING IN BED AT THIS TIME. WILL CONT. TO MONITOR.
--- NOTE | 2018-09-26 11:13 | NUR ---
Pt NPO. Physician recommended tube feeding placement due to aspiration risk secondary to vocal cord paralysis. If tube placed, recommend Jevity 1.5 at goal rate of 45 mL/hr. No water flushes recommended at this time due to IVF running at 80 mL/hr to meet needs. If IVF to be d/c, recommend 175 mL water flushes every 6 hours.
--- NOTE | 2018-09-26 15:26 | NUR ---
Following for d/c planning needs. Family wants to meet with physician. Dr Price said he will be available to meet with family between 10-11 on Saturday. RN to call physician when family arrives. RN notified family.
[2018-09-26 16:33] VITALS: BP 149/67
--- NOTE | 2018-09-26 18:19 | NUR ---
PT CALM THIS AFTERNOON- COOPERATIVE WITH CARES. ORAL CARE PROVIDED. INCONTINENT. PT RESTING IN BED- BED ALARM ON. FAMILY TO MEET WITH DR. HOLLY SALGADO, PLEASE PAGE DR. BARRERA WHEN FAMILY ARRIVES.
[2018-09-26 21:25] VITALS: BP 121/46
[2018-09-26 22:00] VITALS: BP 97/63
[2018-09-27 06:22] VITALS: BP 143/62
--- NOTE | 2018-09-27 07:42 | NUR ---
ASSUMED PT CARE 1899. PT CONFUSED. REASSESSMENT COMPLETE. VSS. IV DRESSING C/D/I, NO SIGNS OF INFILTRATION. ROOM CLOSE TO NURSES STATION AND FRQUENT ROUNDING. REPORT GIVEN TO AM NURSE.
[2018-09-27 09:08] VITALS: BP 150/56
[2018-09-27 17:56] VITALS: BP 125/97
--- NOTE | 2018-09-27 18:37 | NUR ---
PT ASSESSED AT START OF SHIFT. CONFUSED AND RESTLESS SOME THIS AM BUT SETTLED DOWN AFTER IV HALDOL. FAMILY HERE FOR CONFERENCE W/ DR. BARRERA AND DECIDED ON PEG PLACEMENT FOR PT. DR. ZEPEDA WAS IN AND WILL SEE PT IN AM. PT MORE LUCID AND APPROPRIATE AFTER HALDOL AND WHEN FAMILY TALKING W/ HER. REMAINS NPO. TURNED Q2HRS. SKIN INTACT.
[2018-09-27 20:04] VITALS: BP 151/61
[2018-09-28 04:56] VITALS: BP 116/75
[2018-09-28 06:07] LABS: CALCIUM 9.2 mg/dL (8.5-10.1); CREATININE 0.6 mg/dL (0.6-1.0)
[2018-09-28 06:09] LABS: POTASSIUM 2.7 mmol/L (3.5-5.1)
--- NOTE | 2018-09-28 08:00 | NUR ---
PT LYING IN BED. REMAINS INCONTINENT. NO APPARENT PAIN. RESTING COMFORTABLY. WILL CONTINUE TO PROVIDE FREQUENT OBSERVATION.
[2018-09-28 08:56] VITALS: BP 129/65
--- NOTE | 2018-09-28 14:43 | HC ---
[facility] [place] [address] CONSULTATION Name: MICKEYJOSE Room #: 428-P ADM IN M.R.#: [id number] Admission: 09/24/18 ������������������ Attend Phys: Ruben Price MD Discharge: ������������������ Date of : 36 Report #: [id number] THIS REPORT FOR: //name// CC: Ruben Chawla REASON FOR CONSULTATION: The patient is a 77-year-old woman with recent findings of aspiration pneumonia. HISTORY OF PRESENT ILLNESS: This patient has a history of schizophrenia and delusion. She is not able to give any reliable information whatsoever. Information was obtained with detailed discussion with her nurse as well as review of the medical record. According to the nurse, family reports that until last summer, she was actually fairly well and cognitively intact. Things have changed dramatically since that time. Apparently, there is a history of dementia and there is also recent diagnosis of schizophrenia and psychosis. She was being treated for her mental disease and developed cough and fevers. Workup revealed evidence of aspiration pneumonia. According to records, she has also been refusing to eat and drink. She had a CT of the neck, which showed vocal cord paralysis. Apparently, this is an old finding. Recent video swallow did reveal evidence of aspiration with nectar consistency fluids. She was seen in consultation by ENT and a PEG tube placement was recommended. I have spoken with the nurse. There is to be a family conference today to include her daughter who has durable power of senior architect/design manager to discuss PEG tube placement in this patient. PAST MEDICAL HISTORY: She has dementia, recent diagnosis of schizophrenia. She has also had depression. She has had recent aspiration pneumonia. She has essential tremor. PAST SURGICAL HISTORY: She has had left total hip replacement in 08/2017 and right total knee replacement in 2016 and left knee replacement in 1998. ALLERGIES: REPORTED TO HYDROCODONE, ACETAMINOPHEN AND TRAMADOL. CURRENT MEDICATIONS: Albuterol/ipratropium inhaler, enoxaparin, haloperidol, levofloxacin, metronidazole, morphine, ondansetron, oxymetazoline nasal spray. FAMILY HISTORY: Unobtainable due to her mental illness. SOCIAL HISTORY: She reported she has never smoked and does not use alcohol. REVIEW OF SYSTEMS: Unobtainable due to her mental status. [address] [address] CONSULTATION Name: JOSE AREVALO Room #: 428-P [facility] IN ..#: [id number] Admission: 09/24/18 ������������������ Attend Phys: Ruben Price MD Discharge: ������������������ Date of : 36 Report #: [id number] PHYSICAL EXAMINATION: GENERAL: The patient is a well-developed, well-nourished woman. She is awake. She is alert; however, she does not respond appropriately to questions. VITAL SIGNS: Blood pressure 150/56. HEENT: Anicteric. Pupils equal and round. Oropharynx clear. NECK: Supple. CHEST: Clear. HEART: Regular rate and rhythm, normal S1 and S2. ABDOMEN: Normal bowel sounds, soft, nontender, without hepatosplenomegaly. I do not see any obvious surgical scars in her abdomen. RECTAL: Not done. EXTREMITIES: Without edema. ASSESSMENT: 1. Aspiration pneumonia. 2. Dementia. 3. Schizophrenia and psychosis. 4. Vocal cord paralysis. 5. Urinary tract infection. COMMENT: Discussed with the patient's nurse. Family is to have a conference today regarding to long-term plans for this patient. We will await input from family. Plan to consider PEG tube placement. ��������������������������������������������� <ELECTRONICALLY SIGNED> ���������������������������������������� By: Mor Sousa MD ��������������������������������������������� 09/28/18 1443 [id number] [id number] Mor Sousa MD /nt
--- NOTE | 2018-09-28 16:59 | NUR ---
ASSUMED CARE OF PT AT 0700. ASSESSMENT COMPLETED. ALERT TO SELF AND PLACE. DRY MOUTH, ORAL CARE PROVIDED. MAINTAINING NPO STATUS. POTENTIAL ORAL THRUSH NOTED, PHYSICIAN NOTIFIED. DAUGHTER VISISTED TODAY TO BEDSIDE. CONSENT SIGNED FOR PEG TUBE PLACEMENT TOMORROW. RIGHT ARM IV D/C, NEW LEFT FOREARM IV IN PLACE. LOW K+ NOTED, POTASSIUM GIVEN ORDERED. PROTOCOL IN PLACE. WILL CONTINUE TO MONITOR UNTIL EOS.
[2018-09-28 20:08] VITALS: BP 138/60
--- NOTE | 2018-09-29 04:49 | NUR ---
PT RECIEVED THE SECOND BAG OF POTASSIUM PER PROTOCOL.PT SLEPT MOST OF THE NIOGHT,WOKE UP AT APPROX 0400,CONFUSED AND WAS YELLING FOR HELP.PT WAS REMINDED TO USE CALL LIGHT FOR ASSISTANCE.PT WAS OBSERVED TRYING TO GET OUT OF BED,WAS REDIRECTED ,NOT EFFECTIVE.PRN HALDOL ADMINISTERED PER ORDERS.IVF AND IV ABX ADMINATERED.PT INCONT,REPOSITIONED WHILE IN BED.PT RESTING ON HER BED AT THIS TIME.FALL PRECAUTIONS IN PLACE,CALL LIGHT WITHIN REACH.
[2018-09-29 05:27] VITALS: BP 138/65
[2018-09-29 05:49] LABS: HEMATOCRIT 32.7 % (37.0-47.0); HEMOGLOBIN 10.9 gm/dL (12.0-15.0); MCHC 33.4 g/dL (28.0-37.0); MCV 80.6 fL (80.0-100.0); RBC 4.05 mil/uL (4.20-5.00); RDW 15.3 % (10.5-14.5); WBC 4.3 thou/uL (4.0-11.0)
[2018-09-29 06:01] LABS: CALCIUM 8.9 mg/dL (8.5-10.1); CREATININE 0.6 mg/dL (0.6-1.0); POTASSIUM 3.7 mmol/L (3.5-5.1)
[2018-09-29 08:00] VITALS: BP 129/57
--- NOTE | 2018-09-29 11:14 | NUR ---
Note pending PEG placement decision made. When PEG ready to use, continue to recommend Jevity 1.5 with goal of 45ml/hr. Start water flushes 175 ml every 6hrs once IVF are discontinued.
--- NOTE | 2018-09-29 12:15 | NUR ---
ASSUMED CARE OF PT AT 0700. ASSESSMENT COMPLETED. ALERT TO SELF AND PLACE ONLY. HX SCHIZOPHRENIA. DENIES PAIN. NPO FOR PROCEDURE TODAY. INCONTINENT. Q2H TURNS. FAMILY AT BEDSIDE. PT LEFT AT 12:15 VIA CART IN STABLE CONDITION FOR PEG TUBE PLACEMENT. WILL WAIT FOR RETURN.
[2018-09-29 14:44] VITALS: BP 144/64
--- NOTE | 2018-09-29 15:38 | NUR ---
CLINICAL UPDATE PROVIDED TO SONJA BY PHONE. INFORMED HER PT HAD PEG TUBE PLACED TODAY. SHE SAYS THEY ARE ABLE TO ACCEPT PT BACK ONCE MEDICALLY STABLE.
[2018-09-29 20:36] VITALS: BP 143/60
[2018-09-30 05:41] LABS: HEMATOCRIT 33.9 % (37.0-47.0); HEMOGLOBIN 11.4 gm/dL (12.0-15.0); MCH 27.4 pg (26.0-34.0); MCHC 33.7 g/dL (28.0-37.0); MCV 81.2 fL (80.0-100.0); RBC 4.17 mil/uL (4.20-5.00); RDW 15.4 % (10.5-14.5); WBC 5.4 thou/uL (4.0-11.0)
[2018-09-30 05:50] LABS: CALCIUM 9.3 mg/dL (8.5-10.1); CREATININE 0.6 mg/dL (0.6-1.0); POTASSIUM 3.3 mmol/L (3.5-5.1)
[2018-09-30 07:40] VITALS: BP 147/74
--- NOTE | 2018-09-30 07:40 | NUR ---
PT SLEPT OFF AND ON OVER THE NIGHT.PT WAS IMPULSIVE AND RESTLESS,PRN HALDOL ADMINISTERED ,NOT EFFECTIVE PT FINALLY SLEPT AFTER RECEIVING A DOSE OF MORPHINE.INCONT OF BLADDER,EXTERNAL CATH PLACED.CONT ON IVF AND IV ABX ORDERED.JOE RAMIREZ C/D/I.REPORT TO AM NURSE.
--- NOTE | 2018-09-30 11:01 | NUR ---
Received verbal request from Dr Price to try to transition to bolus feedings to prepare for admission to [facility]. Since PEG is new, try to reach goal of 45ml/hr in next 24 hrs, then trial of Jevity 1.5, 1 can bolus every 6 hrs, followed by 200ml water flush. Recommend discontinue water flushes.
[2018-09-30 16:00] VITALS: BP 138/68
--- NOTE | 2018-09-30 19:36 | NUR ---
ASSUMED CARE OF PT AT 0700. ASSESSMENT COMPLETED. ALERT TO SELF AND PLACE ONLY, HX DEMENTIA AND SCHIZOPRENIA. PEG TUBE IN PLACE LLQ, DRESSING C/D/I. TUBE FEEDING JEVITY 1.5 STARTED AT 0800 TODAY, GOAL 45. CURRENTLY RUNNING AT 40, TOLERATING WELL. NO OTHER CHANGE IN STATUS. PT IN STABLE CONDITION. VSS.
[2018-09-30 20:00] VITALS: BP 157/72
--- NOTE | 2018-09-30 23:46 | NUR ---
PT WAS OBSERVED SLEEPING AT THE START OF SHIFT.ASSESSMENT COMPLETED.TF ADVANCED TO 45ML/HR,PT TOLERATING WELL SO FAR.ABD DRSG C/D/I.CT PEOSITIONED Q2. PT INCONTINENT,FATOU CARE DONE WITH EACH INCONTINENCE.IV ABX ORDERED.FALL PRECAUTIONS IN PLACE,CALL LIGHT WITHIN REACH.
[2018-10-01 04:30] VITALS: BP 127/72
[2018-10-01 07:55] VITALS: BP 139/72
[2018-10-01 15:25] VITALS: BP 148/64
[2018-10-01 20:16] VITALS: BP 119/65
[2018-10-02 04:10] VITALS: BP 152/66
[2018-10-02 04:25] LABS: HEMATOCRIT 32.2 % (37.0-47.0); HEMOGLOBIN 10.7 gm/dL (12.0-15.0); MCH 27.1 pg (26.0-34.0); MCHC 33.2 g/dL (28.0-37.0); MCV 81.4 fL (80.0-100.0); RBC 3.95 mil/uL (4.20-5.00); RDW 15.7 % (10.5-14.5); WBC 6.2 thou/uL (4.0-11.0)
--- NOTE | 2018-10-02 04:32 | NUR ---
ASSUMED CARE AT 1900, ASSESSMENT COMPLETED. PT INITIALLY VERY ALERT, PLEASANT, AND ABLE TO MAKE SOME BASIC CONVERSATION WITH STAFF. ABOUT 2200, AFTER PT HAD DOSED OFF BRIEFLY AND WOKEN BACK UP, BECAME INCREASINGLY MORE CONFUSED AND ANXIOUS; WOULD YELL FROM ROOM "MOMMY," "JONES," "HELP," AND "HEY." PT UNABLE TO ARTICULATE WHAT WAS WRONG, JUST THAT SHE FELT WORRIED, OFTEN ASKING FOR STAFF TO DO THINGS BUT COULD NOT FINISH SENTENCES OR EXPLAIN WHAT SHE WANTED. KEPT CALLING OUT THAT THE ROOM WAS MOVING OR SHE WAS MOVING. INCONT MULTIPLE TIMES OVERNIGHT. GAVE PRN DOSE OF HALDOL AT MIDNIGHT, BUT SAW NO IMPROVEMENT IN PT MENTATION. TUBE FEEDING GOING AT 45 ML/HR INTO PEG TUBE, NO RESIDUAL NOTED, HOB AT 30 DEG OR HIGHER. GAVE A FEW SIPS OF HONEY THICK LIQUIDS. NO OTHER CONCERNS, WILL CONTINUE TO MONITOR.
[2018-10-02 04:39] LABS: CALCIUM 8.8 mg/dL (8.5-10.1); CREATININE 0.6 mg/dL (0.6-1.0); MAGNESIUM 1.9 mg/dL (1.8-2.4); POTASSIUM 3.8 mmol/L (3.5-5.1)
[2018-10-02 08:00] VITALS: BP 152/71
--- NOTE | 2018-10-02 15:33 | NUR ---
FAXED CLINICAL UPDATE TO [facility] SPOKE WITH SHANE IN ADM SHE RECEIVED UPDATE. DCP TO FOLLOW.
[2018-10-02 16:56] VITALS: BP 138/64
--- NOTE | 2018-10-02 19:13 | NUR ---
REPORT RECEIVED, AND CARE ASSUMED FROM NOC NURSE; PT IN STABLE CONDITION THIS SHIFT; PT CONTINUES TO BE CONFUSED; PEG FEED CHANGED TO BOLUS; BM TODAY; NO C/O PAIN; PT IS TOLERATING SMALL AMOUNTS OF PUREED FOOD; PT IS UNABLE TO TOLERATE SWISH AND SWALLOW;
[2018-10-02 22:30] VITALS: BP 122/67
--- NOTE | 2018-10-03 04:47 | NUR ---
ASSUMED CARE AT 1900, ASSESSMENT COMPLETED. DISCUSSED POC WITH PT'S DAUGHTER AT BEDSIDE. PT MORE DROWSY THIS SHIFT, TALKING LESS, BUT WHEN SHE DOES TALK IT IS STILL MOSTLY NONSENSE AND HALLUCINATIONS MIXED WITH WHAT SHE HAS SEEN ON TV. HAS NOT BEEN CALLING OUT OVERNIGHT, BUT SLEEPING VERY LITTLE, OPENS EYES SOON SOMEONE ENTERS THE ROOM. HAD 50-60 ML RESIDUAL OUT OF PEG; RAISED HOB AND NEXT CHECK AT MIDNIGHT HAD MUCH LESS RESIDUAL. PT C/O FEELING UNCOMFORTABLY FULL AFTER BOLUS FEEDING AT MIDNIGHT. INCONT MULTIPLE TIMES OVERNIGHT. NO OTHER CONCERNS, WILL CONTINUE TO MONITOR.
[2018-10-03 06:00] VITALS: BP 153/85
[2018-10-03 09:33] VITALS: BP 131/69
[2018-10-03 18:03] VITALS: BP 146/69
[2018-10-03 20:31] VITALS: BP 143/80
--- NOTE | 2018-10-04 03:43 | NUR ---
PATIENT ALERT AND ORIENTED TO SELF. IVF INFUSING W/O COMPLICATION. INCONTINENT OF BLADDED DURING THE NIGHT. PATIENT CHANGED AND OINTMENT PLACED ON BUTTOCKS. BOLUS TUBE FEEDINGS PER PEG TUBE WITH NO RESIDUAL AT TIME OF NOTE. NO NAUSEA NOTED. NO PRN HALDOL OR PAIN MEDICATION NEEDED AT TIME OF NOTE. WILL MONITOR.
[2018-10-04 05:10] VITALS: BP 147/81
[2018-10-04 09:34] LABS: HEMATOCRIT 33.5 % (37.0-47.0); HEMOGLOBIN 11.2 gm/dL (12.0-15.0); MCH 27.1 pg (26.0-34.0); MCHC 33.5 g/dL (28.0-37.0); MCV 80.9 fL (80.0-100.0); RBC 4.14 mil/uL (4.20-5.00); RDW 16.3 % (10.5-14.5); WBC 9.1 thou/uL (4.0-11.0)
[2018-10-04 09:42] LABS: CALCIUM 9.2 mg/dL (8.5-10.1); CREATININE 0.7 mg/dL (0.6-1.0); MAGNESIUM 2.2 mg/dL (1.8-2.4); POTASSIUM 4.3 mmol/L (3.5-5.1)
[2018-10-04 17:09] VITALS: BP 113/52
--- NOTE | 2018-10-04 18:16 | NUR ---
PT ASSESSED AT START OF SHIFT. MORE CALM AND APPROPRIATE BUT STILL CONFUSED. TOLERATING BOLUS TUBE FEEDINGS. IV FLUIDS DC'D AND NOW RECEIVING H2O BOLUSES. SMALL LIQUID BM. TURNED Q2HRS. TEASPOONS OF HONEY THICK LIQUID. PT NOT TAKING MUCH. FAMILY IN FOR VISIT. PLAN FOR RETURN TO [facility]
[2018-10-04 22:40] VITALS: BP 110/59
--- NOTE | 2018-10-05 04:24 | NUR ---
ASSUMED CARE AT 1900, ASSESSMENT COMPLETED. PT LETHARGIC THIS SHIFT, NOT TALKING MUCH, HAS NOT CALLED OUT OVERNIGHT LIKE ON PREVIOUS SHIFTS. FREQ INCONTINENT. CHECKED RESIDUAL AT 2100, 150 ML WAS RETURNED; PULLED PT UP IN BED AND RAISED HOB HIGHER. RECHECKED RESIDUAL AT MIDNIGHT PRIOR TO FEEDING, AND NO RESIDUAL NOTED. DENIES PAIN, NAUSEA, OR SOB. NO OTHER CONCERNS, WILL CONTINUE TO MONITOR.
[2018-10-05 05:57] VITALS: BP 130/63
[2018-10-05 07:32] VITALS: BP 96/48
[2018-10-05 16:22] VITALS: BP 117/59
[2018-10-05 19:57] VITALS: BP 131/75
--- NOTE | 2018-10-06 03:00 | NUR ---
PT AT RISK FOR ASP PNEUMONIA,HOB ELEVATED,NPO AT THIS TIME.CONT ON BOLUS FEEDING WITH FLUSHES,NO RESIDUAL NOTED.PT INCONT OF BLADDER,REDNESS NOTED ON HER FATOU AREA,BARRIER CREAM APPLIED AFTER PERICARE.PT DTR CALLED EARLIER THIS SHIFT FOR UPDATE ON PT'S CONDITION.PT AWAKE AND CONFUSED AND FORGETFUL.PT SLEEPING COMFORTABLY AT THIS TIME.POSSIBLE DC DURING THE DAY.FALL PRECAUTIONS IN PLACE.CALL LIGHT WITHIN REACH.
[2018-10-06 04:37] VITALS: BP 119/50
[2018-10-06 08:04] VITALS: BP 125/65
--- NOTE | 2018-10-06 12:34 | NUR ---
ASSUMED CARE AT 0700, SHIFT ASSESSMENT DONE, MEDS GIVEN THROUGH PEG TUBE. VSS. DISORIENTED, NO APPARENT PAIN. BOLUS TUBE FEEDING WITH 150 ML OF WATER FLUSH Q6H, ADMINISTERED AT 12. WILL CONTINUE TO ASSESS AND ASSIST WITH ADLs NEEDED.
[2018-10-06] MEDS ORDERED: MIRALAX17 GM PER TUBE (13:28)
[2018-10-06] MEDS ORDERED: HALOPERIDOL2 MG/1 ML PER TUBE (13:31)
--- NOTE | 2018-10-06 15:43 | NUR ---
DISCHARGE ORDER RECEIVED, PERIPHERAL IV WAS TAKEN OUT. REPORT CALLED AT 1530. PATIENT IS SUPPOSED TO BE PICKED UP AT 1630
--- NOTE | 2018-10-06 15:47 | NUR ---
PT DISCHARGING TODAY TO [facility] FAXED DC ORDERS/SUMMARY TO FACILITY SPOKE WITH SONJA IN ADM SHE RECEIVED DC ORDERS AND ARRANGED TRANSPORT VIA [facility] FOR 1630. NOTIFIED PT'S DTR (JONES) OF DISCHARGE AND TRANSPORT TIME. UNIT NOTIFIED AND CHART COPY PER US. RN TO CALL REPORT TO [phone].
== END 2018-10-06 16:52 | DRG 177 ==
LOC: 4E 11:22
PROVIDERS: Internal Medicine; ADMIT Hospitalist
PROC: 0DH63UZ Insertion of Feeding Device into Stomach, Percutaneous Approach (ICD-10-PCS; principal; 2018-09-29)
DX: J69.0 Pneumonitis due to inhalation of food and vomit (principal); E43 Unspecified severe protein-calorie malnutrition; N39.0 Urinary tract infection, site not specified; G93.40 Encephalopathy, unspecified; Z68.1 Body mass index [BMI] 19.9 or less, adult; F20.9 Schizophrenia, unspecified; F03.90 Unspecified dementia, unspecified severity, without behavioral disturbance, psychotic disturbance, mood disturbance, and anxiety; F32.9 Major depressive disorder, single episode, unspecified; Z96.653 Presence of artificial knee joint, bilateral; Z96.642 Presence of left artificial hip joint; J38.01 Paralysis of vocal cords and larynx, unilateral; I10 Essential (primary) hypertension; F41.9 Anxiety disorder, unspecified; R13.10 Dysphagia, unspecified; B96.20 Unspecified Escherichia coli [E. coli] as the cause of diseases classified elsewhere; M62.84 Sarcopenia; R41.0 Disorientation, unspecified; B96.1 Klebsiella pneumoniae [K. pneumoniae] as the cause of diseases classified elsewhere; E87.6 Hypokalemia; K22.2 Esophageal obstruction; K44.9 Diaphragmatic hernia without obstruction or gangrene; Z88.8 Allergy status to other drugs, medicaments and biological substances; Z88.1 Allergy status to other antibiotic agents; Z90.710 Acquired absence of both cervix and uterus
CPT/HCPCS: 10783; 62110; 62900; 70005